=== PATIENT | female | born 1970 | race African-American/Black ===

== ENCOUNTER → 2018-06-08 | Outpatient (CLI) | payer BC ==
[~2018-06-08] MED LIST: AMINOPHYLLINE INJ/PF 250 MG/10 ML SDV IV ONE; REGADENOSON INJ 0.4 MG/5 ML DISP.SYRIN IV ONE
--- NOTE | 2018-06-08 17:14 | DRAGON STRESS TEST REPORT ---
INTRAVENOUS LEXISCAN CARDIOLITE STRESS TEST USING SINGLE PHOTON EMMISION COMPUTERIZED TOMOGRAPHIC. DATE OF PROCEDURE: June 08, 2017, INDICATION : Chest pain CARDIAC RISK FACTORS: Diabetes, dyslipidemia RESTING EKG: Sinus rhythm without any baseline ST segment changes STRESS EKG: No significant ST segment changes noted with LexiScan bolus REASON FOR TERMINATION: Protocol. PROCEDURE REPORT: Baseline heart rate 61 beats per minute with blood pressure of 118/71. Patient had no significant complaints. Patient was bolused with Lexiscan 0.4 mg intravenously followed by saline bolus. Heart rate at 2 minutes post bolus 83 with a blood pressure of 158/92. 3 minutes post bolus heart rate 74 with blood pressure of 155/94. No significant EKG changes were noted. Patient had no significant complaints during the procedure or postprocedure. CONCLUSIONS: Normal EKG and hemodynamic response to IV LexiScan. NUCLEAR DATA: At rest the patient was given 14.69 millicuries of technetium 99 sestamibi injected intravenously. As per protocol rest gated SPECT images were obtained. On day of stress test, the patient was given intravenous LexiScan at a dose of 0.4 mg in 5 mL intravenously, followed by flush with normal saline. Subsequently the stress dose of 43.9 millicuries of technetium 99 sestamibi was injected intravenously. As per protocol stress gated images were obtained. NUCLEAR INTERPRETATION: Both raw and processed data were used for interpretation. Visual, qualitative, computer-generated quantitative data was used. There was good myocardial uptake of technetium compound. Motion artifact and soft tissue attenuations were noted. Significantly increased breast attenuation artifact was noted. Increased visceral uptake was noted. No definitive areas of transient perfusion defect noted except for decreased uptake noted in the LV apex more so in stress imaging as compared to rest imaging but there were no accompanying wall motion abnormalities. Most likely explained by normal apical thinning but cannot rule out an area of mild ischemia, No definitive areas of fixed perfusion defect or scars noted. EKG gated imaging showed LV EF at 72 %, rest and stress gated EF similar visually. T. I D. ratio was 1.01. Lung heart ratio noted to be within normal limits 0.33. No significant extracardiac and abnormal radiotracer activities were noted. RV free wall uptake was noted to be WNL. IMPRESSION: Also refer to comments under nuclear interpretation. Also test results needs to be interpreted in the context of pretest probability. 1. No definitive areas of transient perfusion defect noted except for borderline decreased uptake noted in the LV apex more so in stress imaging as compared to rest imaging but there were no accompanying wall motion abnormalities. 2. There is no definitive scintigraphic evidence of myocardial infarction/scar. 3. EKG gated imaging shows left ventricular ejection fraction of approx. 72 %. 4. Clinical correlation requested as worse disease and or balanced ischemia could be missed. In approximately 10% of the cases Lexiscan may not cause adequate vasodilatory stress. RECOMMENDATIONS: Aggressive risk factor modification and medical management. Further evaluation may be needed if continued symptoms or other high risk indicators are noted on clinical evaluation. May consider stress echo if clinically indicated. Close cardiology follow-up is also recommended. Clinical correlation with echocardiogram derived ejection fraction. Inability to exercise by itself can lead to increased cardiovascular event risks. Consider cardiology consultation and or follow-up if clinically indicated. I am available for cardiology evaluation and consultation if requested by the consulting networking engineer, unless patient already has a charge master specialist. Dr. Zhao Khan. MRCP Board certified in cardiology and sleep medicine. Board certified in nuclear cardiology, adult echocardiography. TONNY
== END ==
LOC: RAD 06:38
PROVIDERS: ATTEND Family Medicine
DX: R07.2 Precordial pain (principal); E11.9 Type 2 diabetes mellitus without complications
CPT/HCPCS: 93017; 78452; A9500; J2785; J0280; Q9969

== ENCOUNTER → 2018-10-17 | Outpatient (CLI) | payer BC ==
[2018-10-17 07:20] LABS: ALANINE AMINOTRANSFERASE 39 U/L (9-52); ALBUMIN 4.4 g/dL (3.5-5.0); ALKALINE PHOSPHATASE 140 U/L (38-126); ANION GAP 9 (5-19); ASPARTATE AMINO TRANSFERASE 28 U/L (14-36); BILIRUBIN,DIRECT 0.1 mg/dL (0.0-0.4); BILIRUBIN,TOTAL 0.3 mg/dL (0.2-1.3); BLOOD UREA NITROGEN 15 mg/dL (7-20); CALCIUM 9.7 mg/dL (8.4-10.2); CARBON DIOXIDE 27 mmol/L (22-30); CHLORIDE 105 mmol/L (98-107); CHOLESTEROL 187.87 mg/dL (0-200); GLUCOSE 101 mg/dL (75-110); POTASSIUM 4.3 mmol/L (3.6-5.0); SODIUM 141.2 mmol/L (137-145); TOTAL PROTEIN 7.4 g/dL (6.3-8.2); TRIGLYCERIDES 107 mg/dL (<150)
[2018-10-17 07:31] LABS: DIRECT LDL 94 mg/dL (<100)
== END ==
LOC: LAB 06:42
PROVIDERS: ATTEND Family Medicine
DX: E11.9 Type 2 diabetes mellitus without complications (principal); E78.00 Pure hypercholesterolemia, unspecified; R79.9 Abnormal finding of blood chemistry, unspecified
CPT/HCPCS: 36415; 80053; 80061; 83036

== ENCOUNTER → 2019-04-20 | Outpatient (CLI) | payer BC ==
[2019-04-20 13:50] LABS: ALKALINE PHOSPHATASE 153 U/L (38-126); ANION GAP 10 (5-19); ASPARTATE AMINO TRANSFERASE 23 U/L (14-36); BILIRUBIN,DIRECT 0.3 mg/dL (0.0-0.4); BILIRUBIN,TOTAL 0.4 mg/dL (0.2-1.3); BLOOD UREA NITROGEN 10 mg/dL (7-20); CALCIUM 9.5 mg/dL (8.4-10.2); CARBON DIOXIDE 24 mmol/L (22-30); CHLORIDE 107 mmol/L (98-107); GLUCOSE 113 mg/dL (75-110); TOTAL PROTEIN 7.1 g/dL (6.3-8.2)
[2019-04-20 13:56] LABS: TRIGLYCERIDES 95 mg/dL (<150)
[2019-04-20 14:08] LABS: DIRECT LDL 81 mg/dL (<100)
--- NOTE | 2019-04-20 16:42 | RADIOLOGY REPORT (SQ) ---
EXAM DESCRIPTION: CERV SP 4 OR 5 VIEWS COMPLETED DATE/TIME: 04/20/2019 12:19 pm REASON FOR STUDY: M54.2 CERVICALGIA M54.2 CERVICALGIA COMPARISON: None. NUMBER OF VIEWS: Five views. TECHNIQUE: AP, lateral, obliques and odontoid radiographic images acquired of the cervical spine. LIMITATIONS: None. FINDINGS: MINERALIZATION: Normal. ALIGNMENT: Anatomic. VERTEBRAE: Vertebral bodies of normal height. DISCS: No significant osteophytes or sclerosis. Disc height maintained. FORAMINA: No osteophytes or foraminal narrowing. LATERAL AND POSTERIOR ELEMENTS: Facets, lateral masses and spinous processes without significant find ings. HARDWARE: None in the spine. SOFT TISSUES: No masses or calcifications. Lung apices clear. OTHER: No other significant finding. IMPRESSION: NO SIGNIFICANT RADIOGRAPHIC FINDING IN THE CERVICAL SPINE. TECHNICAL DOCUMENTATION: JOB ID: [id number]- All Rights Reserved Reading location - IP/workstation name: [email or web address]
== END ==
LOC: RAD 11:52
PROVIDERS: ATTEND Family Medicine
DX: M54.2 Cervicalgia (principal); E11.9 Type 2 diabetes mellitus without complications; E03.4 Atrophy of thyroid (acquired)
CPT/HCPCS: 36415; 72050; 80053; 80061; 83036; 84443

== ENCOUNTER → 2019-12-14 | Outpatient (CLI) | payer BC ==
[2019-12-14 12:44] LABS: ALBUMIN 4.4 g/dL (3.5-5.0); ALKALINE PHOSPHATASE 116 U/L (38-126); ANION GAP 9 (5-19); ASPARTATE AMINO TRANSFERASE 31 U/L (14-36); BILIRUBIN,DIRECT 0.3 mg/dL (0.0-0.4); BILIRUBIN,TOTAL 0.6 mg/dL (0.2-1.3); BLOOD UREA NITROGEN 15 mg/dL (7-20); CALCIUM 9.3 mg/dL (8.4-10.2); CARBON DIOXIDE 27 mmol/L (22-30); CHLORIDE 104 mmol/L (98-107); CHOLESTEROL 147.39 mg/dL (0-200); GLUCOSE 100 mg/dL (75-110); POTASSIUM 4.3 mmol/L (3.6-5.0); TOTAL PROTEIN 7.4 g/dL (6.3-8.2); TRIGLYCERIDES 77 mg/dL (<150)
[2019-12-14 12:55] LABS: DIRECT LDL 67 mg/dL (<100)
== END ==
LOC: OD 11:16
PROVIDERS: ATTEND Family Medicine
DX: E11.9 Type 2 diabetes mellitus without complications (principal); E03.4 Atrophy of thyroid (acquired)
CPT/HCPCS: 36415; 80053; 80061; 83036; 84443